=== PATIENT | female | born 1995 | race Caucasian/White ===

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

== ENCOUNTER 2019-06-03 13:07 | Emergency (ER) | payer MEDICAID ==
[~2019-06-03] VITALS: Ht 167.6 cm; Wt 60.3 kg
[2019-06-03 13:46] LABS: Urine Bacteria NONE SEEN /hpf (None Seen); Urine Blood Negative /uL (Negative); Urine Specific Gravity 1.013 (1.001-1.035); Urine WBC 3 /hpf (0 - 5)
[2019-06-03 15:38] VITALS: BP 135/84
== END 2019-06-03 15:43 | disposition home or self-care (01) ==
LOC: ER 13:10
DX: O99.89 Other specified diseases and conditions complicating pregnancy, childbirth and the puerperium (principal); M54.9 Dorsalgia, unspecified; Z3A.01 Less than 8 weeks gestation of pregnancy
CPT/HCPCS: 36415; 81001; 81025; 84702

== ENCOUNTER 2019-11-07 13:44 | Emergency (ER) | payer MEDICAID | END 2019-11-07 14:12 | disposition left against medical advice (07) | LOC: ER 13:53 | DX: R11.10 Vomiting, unspecified (principal); Z53.21 Procedure and treatment not carried out due to patient leaving prior to being seen by health care provider ==

== ENCOUNTER 2019-12-22 18:00 | Observation (INO) | payer MEDICAID ==
[~2019-12-22] VITALS: Ht 167.6 cm; Wt 70.8 kg
[2019-12-22] MEDS ORDERED: LACTATED RINGER'S 1,000 ML IV SCH (18:31)
[2019-12-22] MEDS ORDERED: LACTATED RINGER'S 1,000 ML IV ONE (18:31)
[2019-12-22] MEDS ORDERED: TERBUTALINE SULFATE 1 MG/ML 1ML VIAL SC ONE (18:35)
[2019-12-22] MEDS: TERBUTALINE SULFATE 1 MG/ML 1ML VIAL SC SCH ×2 (18:44→20:13)
[2019-12-22] MEDS ORDERED: ONDANSETRON HCL 4 MG/2 ML VIAL IV PRN (19:15)
[2019-12-22 19:45] LABS: Urine Bacteria FEW /hpf (None Seen); Urine Blood Negative /uL (Negative); Urine Mucus FEW (None Seen); Urine WBC 4 /hpf (0 - 5)
[2019-12-22 19:56] LABS: Alcohol, Urine < 3.0 mg/dL (0-5); Amphetamine Screen, Urine NEGATIVE (NEGATIVE); Barbiturate Scree,Urine NEGATIVE (NEGATIVE); Benzodiazephine Screen, Urine NEGATIVE (NEGATIVE); Cocaine Screen, Urine NEGATIVE (NEGATIVE); Opiate Scree,Urine NEGATIVE (NEGATIVE); Phencyclidine Screen, Urine NEGATIVE (NEGATIVE)
[2019-12-22 20:24] LABS: Cannabinoid Screen, Urine POSITIVE (NEGATIVE)
[2019-12-22] MEDS ORDERED: PREN-153 OR (20:28)
== END 2019-12-22 21:35 | disposition home or self-care (01) | DRG 566 ==
LOC: LDRP 18:00
PROVIDERS: ADMIT Obstetrics & Gynecology; ATTEND Obstetrics & Gynecology
DX: O21.2 Late vomiting of pregnancy (principal); O62.9 Abnormality of forces of labor, unspecified; Z3A.34 34 weeks gestation of pregnancy
CPT/HCPCS: 59025; 76815; 80307; 81001; 81002; 94760; 96361; 96372; 96374; G0378; J2405; J3105; 96365; 96366

== ENCOUNTER 2024-04-22 11:07 | Emergency (ER) | payer MEDICAID ==
[~2024-04-22] VITALS: Ht 172.7 cm; Wt 70.0 kg
[~2024-04-22 11:07] MED LIST: PREN1TAB71 OR
[2024-04-22 11:17] VITALS: BP 150/68; PULSE 128; RESP 18; O2SAT 96
== END 2024-04-22 15:56 | disposition left against medical advice (07) ==
LOC: EDBD 11:07 → ER 11:07
DX: F41.9 Anxiety disorder, unspecified (principal); Z53.21 Procedure and treatment not carried out due to patient leaving prior to being seen by health care provider

== ENCOUNTER 2024-05-30 20:25 | Observation (INO) | payer MEDICAID ==
[~2024-05-30] VITALS: Ht 170.2 cm; Wt 68.5 kg
[2024-05-30 21:29] LABS: Urine Bacteria FEW /hpf (None Seen); Urine Blood Negative /uL (Negative); Urine Clarity Turbid (Clear); Urine Color Yellow (Yellow); Urine Mucus FEW (None Seen); Urine Protein, UAD TRACE (Negative); Urine Specific Gravity 1.028 (1.001-1.035); Urine Urobilinogen 2 mg/dL (Negative); Urine WBC 21 /hpf (0 - 5)
== END 2024-05-30 21:58 | disposition home or self-care (01) ==
LOC: LDRP 20:25
PROVIDERS: ADMIT Obstetrics & Gynecology; ATTEND Obstetrics & Gynecology
DX: O62.9 Abnormality of forces of labor, unspecified (principal); O26.892 Other specified pregnancy related conditions, second trimester; R11.0 Nausea; Z3A.24 24 weeks gestation of pregnancy; Z79.899 Other long term (current) drug therapy; Z98.890 Other specified postprocedural states
CPT/HCPCS: 81001; 81002; 94760; G0378

== ENCOUNTER 2024-06-01 22:25 | Observation (INO) | payer MEDICAID ==
[~2024-06-01] VITALS: Ht 170.2 cm; Wt 83.9 kg
[2024-06-02] MEDS ORDERED: CEPH250C PO (04:45)
== END 2024-06-02 01:36 | disposition home or self-care (01) ==
LOC: LDRP 22:25
PROVIDERS: ADMIT Obstetrics & Gynecology; ATTEND Obstetrics & Gynecology
DX: O62.9 Abnormality of forces of labor, unspecified (principal); O26.892 Other specified pregnancy related conditions, second trimester; R11.0 Nausea; Z79.899 Other long term (current) drug therapy; Z3A.24 24 weeks gestation of pregnancy
CPT/HCPCS: 59025; 76705; 76805; 81002; 94760; G0378

== ENCOUNTER 2024-06-04 08:12 | Emergency (ER) | payer MEDICAID ==
[~2024-06-04] VITALS: Ht 170.2 cm; Wt 84.0 kg
[~2024-06-04 08:12] MED LIST changes: +CEPH250C PO
[2024-06-04 08:15] VITALS: BP 103/69; PULSE 79; RESP 18; O2SAT 97
[2024-06-04 08:49] LABS: Basophils # (auto) 0 10 ^3/uL (0-0.2); Basophils % (auto) 0.2 % (0.0-2.0); Eosinophils # (auto) 0.2 10 ^3/uL (0-0.8); Eosinophils % (auto) 1.6 % (0.0-7.0); Hematocrit 35.1 % (36.0-46.0); Hemoglobin 12.1 g/dL (12.2-16.2); Lymphocytes # (auto) 1.5 10 ^3/uL (0.4-5.4); Lymphocytes % (auto) 14.6 % (10.0-50.0); Mean Corpuscular Hemoglobin 29.5 pg (28.0-32.0); Mean Corpuscular Hgb Conc. 34.4 g/dL (32.0-36.0); Mean Corpuscular Volume 85.8 fL (80.0-100.0); Monocytes # (auto) 0.8 10 ^3/uL (0-1.3); Monocytes % (auto) 7.9 % (0.0-12.0); Neutrophils # (auto) 7.8 10 ^3/uL (1.6-8.6); Neutrophils % (auto) 75.7 % (37.0-80.0); Platelet Count (auto) 223 10^3/uL (140-450); Red Blood Cells 4.09 10^6/uL (4.0-5.20); Red Cell Distribution Width 13.7 % (11.8-14.3); White Blood Cell 10.3 10^3/uL (4.4-10.8)
[2024-06-04 08:56] LABS: Urine Bacteria FEW /hpf (None Seen); Urine Blood Negative /uL (Negative); Urine Clarity Turbid (Clear); Urine Color Yellow (Yellow); Urine Mucus FEW (None Seen); Urine Protein, UAD TRACE (Negative); Urine Specific Gravity 1.025 (1.001-1.035); Urine Urobilinogen Normal (Negative); Urine WBC 21 /hpf (0 - 5)
[2024-06-04 09:10] LABS: Albumin 4.1 g/dL (3.2-4.8); Alkaline Phosphatase 73 U/L (46-116); Anion Gap 4 (5-15); Aspartate Aminotransferase 8 U/L (13-40); Calcium 9.2 mg/dL (8.7-10.4); Carbon Dioxide 27 mmol/L (20-31); Chloride 106 mmol/L (98-107); Glucose 97 mg/dL (74-106); Lipase 31 U/L (12-53); Potassium 3.6 mmol/L (3.5-5.1); Sodium 137 mmol/L (136-145)
[2024-06-04 09:11] LABS: Bilirubin, Total 0.3 mg/dL (0.2-1.0); Total Protein 6.7 g/dL (5.7-8.2)
[2024-06-04 09:18] LABS: Alanine Aminotransferase < 9 U/L (7-40); BUN/Creatinine Ratio 9.6 (10.0-20.0); Blood Urea Nitrogen < 5 mg/dL (9-23)
[2024-06-04] MEDS ORDERED: FOSF3POW PO (11:10)
== END 2024-06-04 11:38 | disposition left against medical advice (07) ==
LOC: EDBD 08:12 → ER 08:12 → EDUNIT# 08:12 → ER 11:38
DX: O23.42 Unspecified infection of urinary tract in pregnancy, second trimester (principal); O21.8 Other vomiting complicating pregnancy; O99.332 Smoking (tobacco) complicating pregnancy, second trimester; N39.0 Urinary tract infection, site not specified; F17.210 Nicotine dependence, cigarettes, uncomplicated; Z3A.26 26 weeks gestation of pregnancy; Z88.0 Allergy status to penicillin; Z88.1 Allergy status to other antibiotic agents
CPT/HCPCS: 36415; 76805; 80053; 81001; 83690; 85025

== ENCOUNTER 2024-06-06 00:02 | Observation (INO) | payer MEDICAID ==
[~2024-06-06] VITALS: Ht 170.2 cm; Wt 83.9 kg
[~2024-06-06 00:02] MED LIST changes: +FOSF3POW PO
[2024-06-06 00:59] LABS: Vaginal Bacteria Rare; Vaginal Clue Cells None Seen; Vaginal Epithelial Cells Rare; Vaginal Trichomonas Not Present
[2024-06-06 01:00] LABS: Urine Bacteria FEW /hpf (None Seen); Urine Blood Negative /uL (Negative); Urine Budding Yeast OCCASIONAL /hpf (None Seen); Urine Clarity Turbid (Clear); Urine Color Light-Yellow (Yellow); Urine Protein, UAD Negative (Negative); Urine Specific Gravity 1.014 (1.001-1.035); Urine Urobilinogen Normal (Negative); Urine WBC 20 /hpf (0 - 5)
[2024-06-06] MEDS: ACETAMINOPHEN 325 MG TAB PO ONE ×2 (01:30→02:29)
[2024-06-06] MEDS: LACTATED RINGER'S 1,000 ML IV SCH (01:58)
[2024-06-06 02:25] LABS: Amphetamine Screen, Urine Neg (NEGATIVE); Barbiturate Scree,Urine Neg (NEGATIVE); Benzodiazephine Screen, Urine Neg (NEGATIVE); Cannabinoid Screen, Urine Neg (NEGATIVE); Cocaine Screen, Urine Neg (NEGATIVE); Opiate Scree,Urine Neg (NEGATIVE); Phencyclidine Screen, Urine Neg (NEGATIVE)
[2024-06-06 05:00] LABS: Basophils # (auto) 0 10 ^3/uL (0-0.2); Basophils % (auto) 0.3 % (0.0-2.0); Eosinophils # (auto) 0.2 10 ^3/uL (0-0.8); Eosinophils % (auto) 1.7 % (0.0-7.0); Hematocrit 31.5 % (36.0-46.0); Hemoglobin 10.7 g/dL (12.2-16.2); Lymphocytes # (auto) 1.8 10 ^3/uL (0.4-5.4); Lymphocytes % (auto) 16.3 % (10.0-50.0); Mean Corpuscular Hgb Conc. 34.1 g/dL (32.0-36.0); Mean Corpuscular Volume 85.2 fL (80.0-100.0); Monocytes # (auto) 0.7 10 ^3/uL (0-1.3); Monocytes % (auto) 6.7 % (0.0-12.0); Neutrophils # (auto) 8.3 10 ^3/uL (1.6-8.6); Platelet Count (auto) 209 10^3/uL (140-450); Red Blood Cells 3.69 10^6/uL (4.0-5.20); Red Cell Distribution Width 13.5 % (11.8-14.3); White Blood Cell 11.1 10^3/uL (4.4-10.8)
[2024-06-06 05:16] LABS: Albumin 3.5 g/dL (3.2-4.8); Alkaline Phosphatase 68 U/L (46-116); Anion Gap 7 (5-15); Aspartate Aminotransferase < 8 U/L (13-40); Bilirubin, Total 0.3 mg/dL (0.2-1.0); Calcium 8.9 mg/dL (8.7-10.4); Carbon Dioxide 23 mmol/L (20-31); Chloride 107 mmol/L (98-107); Glucose 124 mg/dL (74-106); Potassium 3.4 mmol/L (3.5-5.1); Sodium 137 mmol/L (136-145); Total Protein 5.7 g/dL (5.7-8.2)
[2024-06-06 05:33] LABS: Alanine Aminotransferase < 9 U/L (7-40); BUN/Creatinine Ratio 9.8 (10.0-20.0); Blood Urea Nitrogen < 5 mg/dL (9-23)
== END 2024-06-06 05:10 | disposition home or self-care (01) ==
LOC: LDRP 00:02
PROVIDERS: ADMIT Obstetrics & Gynecology; ATTEND Obstetrics & Gynecology
DX: O62.9 Abnormality of forces of labor, unspecified (principal); O99.891 Other specified diseases and conditions complicating pregnancy; N13.30 Unspecified hydronephrosis; O26.892 Other specified pregnancy related conditions, second trimester; R51.9 Headache, unspecified; Z3A.25 25 weeks gestation of pregnancy; Z88.0 Allergy status to penicillin; Z88.5 Allergy status to narcotic agent; Z79.899 Other long term (current) drug therapy; Z98.891 History of uterine scar from previous surgery
CPT/HCPCS: 36415; 59025; 76705; 80053; 80307; 81001; 81002; 85025; 87086; 87210; 94760; 96360; 96361; G0378

== ENCOUNTER 2024-06-12 20:11 | Observation (INO) | payer MEDICAID ==
[~2024-06-12] VITALS: Ht 167.6 cm; Wt 83.9 kg
[~2024-06-12 20:11] MED LIST changes: -CEPH250C PO; -FOSF3POW PO
[2024-06-12 21:08] LABS: Basophils # (auto) 0 10 ^3/uL (0-0.2); Basophils % (auto) 0.3 % (0.0-2.0); Eosinophils # (auto) 0.1 10 ^3/uL (0-0.8); Eosinophils % (auto) 1.5 % (0.0-7.0); Hematocrit 33.3 % (36.0-46.0); Hemoglobin 11.2 g/dL (12.2-16.2); Lymphocytes # (auto) 1.8 10 ^3/uL (0.4-5.4); Lymphocytes % (auto) 18.1 % (10.0-50.0); Mean Corpuscular Hemoglobin 28.6 pg (28.0-32.0); Mean Corpuscular Hgb Conc. 33.8 g/dL (32.0-36.0); Mean Corpuscular Volume 84.8 fL (80.0-100.0); Monocytes # (auto) 0.7 10 ^3/uL (0-1.3); Monocytes % (auto) 7.4 % (0.0-12.0); Neutrophils # (auto) 7.1 10 ^3/uL (1.6-8.6); Neutrophils % (auto) 72.7 % (37.0-80.0); Nucleated Red Blood Cells % 0.1 %; Platelet Count (auto) 207 10^3/uL (140-450); Red Blood Cells 3.93 10^6/uL (4.0-5.20); Red Cell Distribution Width 13.7 % (11.8-14.3); White Blood Cell 9.8 10^3/uL (4.4-10.8)
[2024-06-12 21:26] LABS: Urine Bacteria FEW /hpf (None Seen); Urine Blood Negative /uL (Negative); Urine Budding Yeast OCCASIONAL /hpf (None Seen); Urine Clarity Turbid (Clear); Urine Color Yellow (Yellow); Urine Mucus FEW (None Seen); Urine Protein, UAD TRACE (Negative); Urine Specific Gravity 1.026 (1.001-1.035); Urine Urobilinogen 2 mg/dL (Negative); Urine WBC 17 /hpf (0 - 5); Urine pH 6.5 (5.0-9.0)
[2024-06-12 21:27] LABS: INR 1.03 (0.9-1.15); Partial Thromboplastin Time 27.9 SEC (24.5-34.5); Prothrombin Time 10.9 sec (9.3-11.8)
[2024-06-12 21:28] LABS: Protein, Urine 25.5 mg/dL (1-14)
[2024-06-12 21:30] LABS: Creatinine, Urine 155.6 mg/dL (30.0-125.0); Urine Protein/Creatinine Ratio 0.16
[2024-06-12 21:34] LABS: Albumin 3.9 g/dL (3.2-4.8); Alkaline Phosphatase 77 U/L (46-116); Anion Gap 5 (5-15); Aspartate Aminotransferase 10 U/L (13-40); Bilirubin, Total 0.3 mg/dL (0.2-1.0); Calcium 9.1 mg/dL (8.7-10.4); Carbon Dioxide 23 mmol/L (20-31); Chloride 109 mmol/L (98-107); Glucose 104 mg/dL (74-106); Potassium 3.6 mmol/L (3.5-5.1); Sodium 137 mmol/L (136-145); Total Protein 6.5 g/dL (5.7-8.2); Uric Acid 4.4 mg/dL (3.1-7.8)
[2024-06-12 21:37] LABS: Alanine Aminotransferase < 9 U/L (7-40); BUN/Creatinine Ratio 11.1 (10.0-20.0); Blood Urea Nitrogen < 5 mg/dL (9-23)
[2024-06-12] MEDS: ACETAMINOPHEN 325 MG TAB PO ONE (22:28)
[2024-06-13 16:41] VITALS: TEMP 98.6
[2024-06-13] MEDS: ACETAMINOPHEN 325 MG TAB PO ONE (16:41)
== END 2024-06-13 19:00 | disposition home or self-care (01) ==
LOC: LDRP 20:11
PROVIDERS: ADMIT Obstetrics & Gynecology; ATTEND Obstetrics & Gynecology
DX: O36.8120 Decreased fetal movements, second trimester, not applicable or unspecified (principal); O62.9 Abnormality of forces of labor, unspecified; O26.892 Other specified pregnancy related conditions, second trimester; R51.9 Headache, unspecified; Z3A.26 26 weeks gestation of pregnancy; Z79.899 Other long term (current) drug therapy; Z98.890 Other specified postprocedural states
CPT/HCPCS: 36415; 59025; 76815; 80053; 81001; 82570; 82948; 82962; 84156; 84550; 85025; 85610; 85730; 86850; 86900; 86901; 94760; G0378; 94762

== ENCOUNTER 2024-06-14 02:45 | Observation (INO) | payer MEDICAID ==
[~2024-06-14] VITALS: Ht 167.6 cm; Wt 83.9 kg
[2024-06-14] MEDS ORDERED: LACTATED RINGER'S 1,000 ML IV ONE (03:30)
[2024-06-14] MEDS: TERBUTALINE SULFATE 1 MG/ML 1ML VIAL SC ONE (03:58)
[2024-06-14 04:05] LABS: Amphetamine Screen, Urine Neg (NEGATIVE); Barbiturate Scree,Urine Neg (NEGATIVE); Benzodiazephine Screen, Urine Neg (NEGATIVE); Cocaine Screen, Urine Neg (NEGATIVE)
[2024-06-14 04:06] LABS: Cannabinoid Screen, Urine Neg (NEGATIVE); Opiate Scree,Urine Neg (NEGATIVE); Phencyclidine Screen, Urine Neg (NEGATIVE)
--- NOTE | 2024-06-14 05:25 | DVH ---
Examination: RIGHT LOWER QUAD CLINICAL INDICATION: Pain. COMPARISON: None. TECHNIQUE: Using real-time ultrasonic imaging the abdomen was examined. FINDINGS: Appendix is not visualized at this time. Negative McBurney"s sign. No ascites is seen. IMPRESSION: 1. Appendix is not visualized at this time. 2. Negative McBurney"s sign. Electronically Signed 06/14/2024 05:16 Kim Kelley
--- NOTE | 2024-06-14 05:37 | DVH ---
Examination: OBLTD CLINICAL INDICATION: Cervical Length COMPARISON: None. TECHNIQUE: Transabdominal OB ultrasound was performed. FINDING: Real time ultrasound examination of pelvis shows normal single intra-uterine . Placenta is posterior in position. No placenta previa or placental abruption. cardiac activity is well appreciated. Fetus is in vertex position. RAD: 12.8 cm heart rate: 150b/min Internal os is closed. Cervical length is adequate measuring 3 cm. IMPRESSION: Single live intra-uterine . Electronically Signed 06/14/2024 05:29 Kim Kelley
[2024-06-14] MEDS ORDERED: TERBUTALINE SULFATE 1 MG/ML 1ML VIAL SC SCH (05:45)
[2024-06-14 06:15] LABS: Albumin 3.7 g/dL (3.2-4.8); Alkaline Phosphatase 72 U/L (46-116); Anion Gap 8 (5-15); Aspartate Aminotransferase 14 U/L (13-40); Bilirubin, Total 0.2 mg/dL (0.2-1.0); Calcium 8.9 mg/dL (8.7-10.4); Carbon Dioxide 23 mmol/L (20-31); Chloride 108 mmol/L (98-107); Glucose 105 mg/dL (74-106); Potassium 3.2 mmol/L (3.5-5.1); Sodium 139 mmol/L (136-145); Total Protein 6.2 g/dL (5.7-8.2)
[2024-06-14 06:16] LABS: Basophils # (auto) 0 10 ^3/uL (0-0.2); Basophils % (auto) 0.2 % (0.0-2.0); Eosinophils # (auto) 0.1 10 ^3/uL (0-0.8); Hematocrit 32.5 % (36.0-46.0); Hemoglobin 11.2 g/dL (12.2-16.2); Lymphocytes # (auto) 2.5 10 ^3/uL (0.4-5.4); Lymphocytes % (auto) 20.9 % (10.0-50.0); Mean Corpuscular Hemoglobin 29.4 pg (28.0-32.0); Mean Corpuscular Hgb Conc. 34.4 g/dL (32.0-36.0); Mean Corpuscular Volume 85.5 fL (80.0-100.0); Monocytes # (auto) 0.7 10 ^3/uL (0-1.3); Neutrophils # (auto) 8.6 10 ^3/uL (1.6-8.6); Neutrophils % (auto) 71.9 % (37.0-80.0); Nucleated Red Blood Cells % 0.1 %; Platelet Count (auto) 176 10^3/uL (140-450); Red Blood Cells 3.81 10^6/uL (4.0-5.20); Red Cell Distribution Width 13.5 % (11.8-14.3)
[2024-06-14 06:26] LABS: Alanine Aminotransferase < 9 U/L (7-40); BUN/Creatinine Ratio 10.6 (10.0-20.0); Blood Urea Nitrogen < 5 mg/dL (9-23)
[2024-06-14] MEDS: AZTREONAM 1GM INJ 1 GM in D5W 5% 50 ML IV ONE (08:48)
--- NOTE | 2024-06-14 09:45 | DVHDS2 ---
Physician Discharge Progress N Final Diagnosis: IUP 26 wk, C/S x 4 Abdominal pain Mild right hydronephrosis Suspected upper UTI Operations or Procedures: Operations or Procedures NST Commentary: Commentary RUQ ultrasound normal gallbladder Abd US normal appendix UA contaminated, repeat sent Treated w/ IV antibiotics for suspected UTI, and PO Antibiotics MACROBID x 1 week Condition on Discharge: Stable Disposition: Home Discharge Instructions: Diet: Regular Activity: No Restrictions, As Tolerated Follow Up/Referral: f/u w/ Primary OB in 3-5 days Medications: Macrobid 100mg PO BID x 7d Follow Up Care: Discharge Statement: "Patient was advised to return to the ER or call 911 if any headaches, dizziness, shortness of breath, chest pain, abdominal pain, bleeding, fevers, or worsening of medical condition. Patient was counseled about treatment plan, medications, possible side effects, patientverbalized understanding. All questions were answered to the best of my ability. This discharge took greater then 30 minutes in planning, reviewing documentation, counseling the patient, and discussing with other team members." VANDANA CHRISTIAN DO Jun 14, 2024 09:45
== END 2024-06-14 09:59 | disposition home or self-care (01) ==
LOC: LDRP 02:45
PROVIDERS: ADMIT Obstetrics & Gynecology; ATTEND Obstetrics & Gynecology
DX: O99.891 Other specified diseases and conditions complicating pregnancy (principal); N13.30 Unspecified hydronephrosis; O36.8120 Decreased fetal movements, second trimester, not applicable or unspecified; O26.892 Other specified pregnancy related conditions, second trimester; R10.11 Right upper quadrant pain; R51.9 Headache, unspecified; O99.332 Smoking (tobacco) complicating pregnancy, second trimester; F17.210 Nicotine dependence, cigarettes, uncomplicated; Z59.00 Homelessness unspecified; Z3A.26 26 weeks gestation of pregnancy; Z88.5 Allergy status to narcotic agent; Z88.6 Allergy status to analgesic agent; Z88.0 Allergy status to penicillin; Z79.899 Other long term (current) drug therapy
CPT/HCPCS: 36415; 59025; 76705; 76815; 80053; 80307; 81002; 85025; 87086; 94760; 96365; 96372; G0378; J3105; J7060; 96360